=== PATIENT | female | born 1935 | race Caucasian/White ===

== ENCOUNTER 2017-04-10 10:30 | Emergency (ER) | payer MEDICAID, MEDICARE ==
[~2017-04-10] VITALS: Ht 157.5 cm; Wt 55.9 kg
[~2017-04-10 10:30] MED LIST: BLOOD PRESSURE MED
[2017-04-10 10:41] VITALS: BP 171/101
[2017-04-10] MEDS ORDERED: L.E.T SOLUTION TP ONE (11:30)
[2017-04-10] MEDS ORDERED: DIPH,PERTUSS(ACELL),TET VAC/PF 0.5 ML IM-VACC ONE ×2 (11:44→12:00)
== END 2017-04-10 11:59 | disposition home or self-care (01) ==
LOC: ED 11:50
DX: S61.411A Laceration without foreign body of right hand, initial encounter (principal); I10 Essential (primary) hypertension; I21.3 ST elevation (STEMI) myocardial infarction of unspecified site; W23.0XXA Caught, crushed, jammed, or pinched between moving objects, initial encounter; Y93.89 Activity, other specified; Y92.89 Other specified places as the place of occurrence of the external cause; Y99.8 Other external cause status; Z23 Encounter for immunization
CPT/HCPCS: 90471; 90715

== ENCOUNTER 2017-04-18 15:01 | Emergency (ER) | payer MEDICAID, MEDICARE ==
[~2017-04-18] VITALS: Ht 157.5 cm; Wt 55.4 kg
[2017-04-18 16:13] LABS: BLOOD UREA NITROGEN 26 mg/dL (7-18)
[2017-04-18] MEDS ORDERED: ENALAPRIL 5MG TABLET PO ONE (16:30)
[2017-04-18] MEDS ORDERED: BACITRACIN ZINC OINT 500U/GM, 0.9 GM ONE ×2 (17:09)
[2017-04-18 17:32] VITALS: BP 206/114
== END 2017-04-18 17:35 | disposition home or self-care (01) ==
LOC: ED 17:29
DX: S61.411D Laceration without foreign body of right hand, subsequent encounter (principal); N28.9 Disorder of kidney and ureter, unspecified; I10 Essential (primary) hypertension; Z90.710 Acquired absence of both cervix and uterus; L03.113 Cellulitis of right upper limb; W23.0XXD Caught, crushed, jammed, or pinched between moving objects, subsequent encounter; Y92.89 Other specified places as the place of occurrence of the external cause; Y99.9 Unspecified external cause status
CPT/HCPCS: 36415; 80048; 82040; 85025; 93005; 99285

== ENCOUNTER 2017-09-17 19:48 | Emergency (ER) | payer MEDICARE ==
[~2017-09-17] VITALS: Ht 167.6 cm; Wt 75.0 kg
[2017-09-17 21:52] VITALS: BP 148/98
== END 2017-09-17 21:54 | disposition home or self-care (01) ==
LOC: ED 20:28 → EDBD 20:28 → ED 21:54
DX: R41.82 Altered mental status, unspecified (principal); R41.0 Disorientation, unspecified; I10 Essential (primary) hypertension; K22.6 Gastro-esophageal laceration-hemorrhage syndrome; I25.2 Old myocardial infarction
CPT/HCPCS: 99284

== ENCOUNTER 2018-01-19 15:30 | Inpatient (IN) | payer MEDICARE, MEDICAID ==
[~2018-01-19] VITALS: Ht 157.5 cm; Wt 42.7 kg
[2018-01-19] MEDS ORDERED: NITROGLYCERIN OINT 2%, 1GM TP ONE ×2 (16:00→16:14)
[2018-01-19] MEDS ORDERED: SODIUM CHLORIDE FLUSH 10ML SYR IVF ONE (16:00)
[2018-01-19] MEDS: LABETALOL 5MG/ML, 20ML IVPush ONE ×2 (16:00→16:27)
[2018-01-19 16:11] LABS: BASOPHILS # (AUTO) 0.05 x10^3/uL (0-0.1); BASOPHILS % (AUTO) 1 % (0-1); EOSINOPHILS # (AUTO) 0.02 x10^3/uL (0-0.4); EOSINOPHILS % (AUTO) 0 % (1-7); LYMPHOCYTES # (AUTO) 1.55 x10^3/uL (1-3.4); LYMPHOCYTES % (AUTO) 26 % (22-44); MD NO; MEAN CORPUSCULAR HEMOGLOBIN 31.9 pg (27.0-34.8); MEAN CORPUSCULAR HGB CONC 34.3 g/dL (32.4-35.8); MEAN PLATELET VOLUME 7.3 fL (7.4-10.4); MONOCYTES # (AUTO) 0.56 x10^3/uL (0.2-0.8); MONOCYTES % (AUTO) 9 % (2-9); NEUTROPHILS # (AUTO) 3.88 x10^3/uL (1.8-6.8); NEUTROPHILS % (AUTO) 64 % (42-75); PLATELET COUNT 328 x10^3/uL (130-400); RED BLOOD COUNT 4.97 x10^6/uL (3.82-5.3); RED CELL DISTRIBUTION WIDTH 13.9 % (9.6-15.2)
[2018-01-19] MEDS ORDERED: LABETALOL 5MG/ML, 20ML ONE (16:15)
[2018-01-19 16:20] LABS: ALANINE AMINOTRANSFERASE 20 U/L (12-78); ALBUMIN 4.1 g/dL (3.4-5.0); ANION GAP 11 mmol/L (5-15); CALCIUM 9.2 mg/dL (8.5-10.1); CHLORIDE 105 mmol/L (98-107); CULTURE INDICATED? YES; MICROSCOPIC INDICATED
[2018-01-19 16:22] LABS: ALKALINE PHOSPHATASE 51 U/L (45-117); BILIRUBIN,TOTAL 0.6 mg/dL (0.2-1.0); SALICYLATE LEVEL < 1.7 mg/dL (2.8-20.0)
[2018-01-19 16:23] LABS: ACETAMINOPHEN < 2 mcg/mL (10-30)
[2018-01-19 16:27] LABS: AMPHETAMINE SCREEN, URINE Negative (Negative); BARBITURATE SCREEN, URINE Negative (Negative); BENZODIAZEPINE SCREEN, URINE Negative (Negative); CANNABINOID SCREEN, URINE Negative (Negative); COCAINE SCREEN, URINE Negative (Negative); METHADONE SCREEN, URINE Negative (Negative); OPIATE SCREEN, URINE Negative (Negative)
[2018-01-19] MEDS ORDERED: CEFTRIAXONE PMX 1GM/50ML 50 ML IV ONE (16:30)
[2018-01-19] MEDS ORDERED: CEFTRIAXONE PMX 1GM/50ML 50 ML ONE (16:42)
[2018-01-19] MEDS ORDERED: ZIPRASIDONE 20 MG INJ IM ONE ×2 (18:30)
[2018-01-19] MEDS ORDERED: ENOXAPARIN 40 MG/0.4 ML SQ SCH (20:30)
[2018-01-19] MEDS ORDERED: ACETAMINOPHEN 325 MG TABLET PO PRN (20:30)
[2018-01-19 21:53] VITALS: BP 148/84
[2018-01-19] MEDS: SODIUM CHLORIDE 0.9% 1,000 ML IV SCH (22:46)
[2018-01-20 01:13] VITALS: BP 138/78
[2018-01-20 06:47] VITALS: BP 167/80
[2018-01-20] MEDS: SODIUM CHLORIDE 0.9% 1,000 ML IV SCH ×2 (10:44→22:28)
[2018-01-20 13:10] VITALS: BP 203/97
[2018-01-20] MEDS: hydrALAzine 20 MG/ML, 1ML IVPush PRN (13:31)
[2018-01-20 19:20] VITALS: BP 165/86
[2018-01-20] MEDS: IBUPROFEN 200 MG TABLET PO PRN (19:31)
[2018-01-20] MEDS: CEFTRIAXONE PMX 1GM/50ML 50 ML IV SCH (19:31)
[2018-01-20] MEDS: ENOXAPARIN 30 MG/0.3 ML SQ SCH (19:31)
[2018-01-21 02:04] VITALS: BP 161/88
[2018-01-21 07:15] VITALS: BP 183/93
[2018-01-21] MEDS: hydrALAzine 20 MG/ML, 1ML IVPush PRN ×3 (07:35→17:23)
[2018-01-21 10:09] LABS: ANION GAP 9 mmol/L (5-15); CALCIUM 8.5 mg/dL (8.5-10.1); CHLORIDE 106 mmol/L (98-107); CREATININE 1.11 mg/dL (0.55-1.02)
[2018-01-21 12:45] VITALS: BP 172/90
[2018-01-21] MEDS: IBUPROFEN 200 MG TABLET PO PRN (12:50)
[2018-01-21 17:03] VITALS: BP 172/93
[2018-01-21 17:44] LABS: FREE T4 (FREE THYROXINE) 1.02 ng/dL (0.76-1.46); TROPONIN I < 0.015 ng/mL (0.000-0.045)
[2018-01-21 18:05] VITALS: BP 173/76
[2018-01-21 18:06] LABS: FOLATE LEVEL 12.1 ng/mL (3.1-17.5)
[2018-01-21] MEDS ORDERED: GADOBUTROL 7.5 MMOL/7.5 ML PFS ONE (19:30)
[2018-01-21 20:06] VITALS: BP 162/72
[2018-01-21] MEDS: ONDANSETRON 2MG/ML, 2ML IVPush PRN (20:33)
[2018-01-21] MEDS: CEFTRIAXONE PMX 1GM/50ML 50 ML IV SCH (22:06)
[2018-01-21] MEDS: ENOXAPARIN 30 MG/0.3 ML SQ SCH (22:06)
[2018-01-21] MEDS: ATORVASTATIN 20 MG TABLET PO SCH (22:07)
[2018-01-22] MEDS ORDERED: ASPIRIN 325 MG TABLET ONE (00:34)
[2018-01-22] MEDS: ASPIRIN 325 MG TABLET PO SCH (00:51)
[2018-01-22 01:02] VITALS: BP 158/83
[2018-01-22 05:22] LABS: BASOPHILS # (AUTO) 0.04 x10^3/uL (0-0.1); BASOPHILS % (AUTO) 1 % (0-1); EOSINOPHILS # (AUTO) 0.05 x10^3/uL (0-0.4); EOSINOPHILS % (AUTO) 1 % (1-7); LYMPHOCYTES # (AUTO) 1.93 x10^3/uL (1-3.4); LYMPHOCYTES % (AUTO) 27 % (22-44); MD NO; MEAN CORPUSCULAR HEMOGLOBIN 32.1 pg (27.0-34.8); MEAN CORPUSCULAR HGB CONC 34.1 g/dL (32.4-35.8); MEAN CORPUSCULAR VOLUME 94.1 fL (80-100); MEAN PLATELET VOLUME 7.7 fL (7.4-10.4); MONOCYTES # (AUTO) 0.92 x10^3/uL (0.2-0.8); MONOCYTES % (AUTO) 13 % (2-9); NEUTROPHILS # (AUTO) 4.24 x10^3/uL (1.8-6.8); NEUTROPHILS % (AUTO) 59 % (42-75); PLATELET COUNT 296 x10^3/uL (130-400); RED BLOOD COUNT 4.91 x10^6/uL (3.82-5.3); RED CELL DISTRIBUTION WIDTH 13.2 % (9.6-15.2)
[2018-01-22] MEDS: IBUPROFEN 200 MG TABLET PO PRN (05:25)
[2018-01-22 05:33] LABS: CHLORIDE 104 mmol/L (98-107)
[2018-01-22 05:34] LABS: ALBUMIN 3.7 g/dL (3.4-5.0); ANION GAP 12 mmol/L (5-15); CALCIUM 8.6 mg/dL (8.5-10.1)
[2018-01-22 05:39] LABS: ALANINE AMINOTRANSFERASE 20 U/L (12-78); ALKALINE PHOSPHATASE 46 U/L (45-117); BILIRUBIN,TOTAL 0.6 mg/dL (0.2-1.0); CHOL/HDL RATIO 3.3; CHOLESTEROL, TOTAL 293 mg/dL (140-239); CREATININE 1.15 mg/dL (0.55-1.02); HDL CHOL % 30 % (28-40); HDL CHOLESTEROL (DIRECT) 88 mg/dL (40-60); LDL CHOLESTEROL,CALCULATED 177 mg/dL (54-169); TOTAL PROTEIN 7.1 g/dL (6.4-8.2); TRIGLYCERIDES 140 mg/dL (50-200); TROPONIN I < 0.015 ng/mL (0.000-0.045); VLDL CHOLESTEROL 28 mg/dL (0-25)
[2018-01-22 07:40] VITALS: BP 161/104
[2018-01-22 16:02] VITALS: BP 170/107
[2018-01-22 19:47] VITALS: BP 189/92
[2018-01-22] MEDS: ENOXAPARIN 30 MG/0.3 ML SQ SCH (21:00)
[2018-01-22] MEDS: ATORVASTATIN 20 MG TABLET PO SCH (21:30)
[2018-01-22] MEDS: CEFDINIR 300 MG CAPSULE PO SCH (21:30)
[2018-01-22] MEDS: LISINOPRIL 10 MG TABLET PO SCH (21:30)
[2018-01-22 22:33] VITALS: BP 169/91
[2018-01-23 01:55] VITALS: BP 158/89
[2018-01-23 07:29] VITALS: BP 143/76
[2018-01-23] MEDS: ASPIRIN 325 MG TABLET PO SCH (08:00)
[2018-01-23] MEDS: LISINOPRIL 10 MG TABLET PO SCH ×2 (09:27→21:08)
[2018-01-23] MEDS: CEFDINIR 300 MG CAPSULE PO SCH ×2 (09:27→21:08)
[2018-01-23] MEDS: AMLODIPINE 5 MG TABLET PO SCH (09:27)
[2018-01-23 13:08] VITALS: BP 133/77
[2018-01-23 20:41] VITALS: BP 116/73
[2018-01-23] MEDS: ATORVASTATIN 20 MG TABLET PO SCH (21:08)
[2018-01-23] MEDS: ENOXAPARIN 30 MG/0.3 ML SQ SCH (21:08)
[2018-01-24 01:21] VITALS: BP 144/86
[2018-01-24] MEDS: ASPIRIN 325 MG TABLET PO SCH (04:57)
[2018-01-24 07:55] VITALS: BP 180/92
[2018-01-24] MEDS: LISINOPRIL 10 MG TABLET PO SCH ×2 (08:13→22:53)
[2018-01-24] MEDS: AMLODIPINE 5 MG TABLET PO SCH (08:13)
[2018-01-24] MEDS: CEFDINIR 300 MG CAPSULE PO SCH ×2 (08:13→22:53)
[2018-01-24 09:49] VITALS: BP 180/78
[2018-01-24] MEDS ORDERED: LORazepam 1MG TABLET PO ONE (12:00)
[2018-01-24] MEDS ORDERED: LORazepam 1MG TABLET PO PRN (12:00)
[2018-01-24 12:32] VITALS: BP 152/99
[2018-01-24 19:51] VITALS: BP 156/81
[2018-01-24] MEDS: ATORVASTATIN 20 MG TABLET PO SCH (22:53)
[2018-01-24] MEDS: ENOXAPARIN 40 MG/0.4 ML SQ SCH (23:06)
[2018-01-25 00:26] VITALS: BP 153/88
[2018-01-25] MEDS: LORazepam 1MG TABLET PO SCH ×3 (00:30→21:00)
[2018-01-25 05:32] LABS: CHLORIDE 106 mmol/L (98-107)
[2018-01-25] MEDS: ASPIRIN 325 MG TABLET PO SCH (05:38)
[2018-01-25 05:52] LABS: ANION GAP 7 mmol/L (5-15); CALCIUM 8.2 mg/dL (8.5-10.1); CREATININE 0.93 mg/dL (0.55-1.02)
[2018-01-25 07:11] VITALS: BP 136/85
[2018-01-25] MEDS: CEFDINIR 300 MG CAPSULE PO SCH ×2 (09:01→21:36)
[2018-01-25] MEDS: LISINOPRIL 10 MG TABLET PO SCH ×2 (09:01→21:36)
[2018-01-25] MEDS: AMLODIPINE 5 MG TABLET PO SCH (09:02)
[2018-01-25 12:36] VITALS: BP 163/79
[2018-01-25 20:30] VITALS: BP 129/77
[2018-01-25] MEDS: ATORVASTATIN 20 MG TABLET PO SCH (21:36)
[2018-01-25] MEDS: ENOXAPARIN 40 MG/0.4 ML SQ SCH (21:40)
[2018-01-26 02:00] VITALS: BP 130/72
[2018-01-26] MEDS: ASPIRIN 325 MG TABLET PO SCH (06:03)
[2018-01-26 08:28] VITALS: BP 131/64
[2018-01-26] MEDS: LORazepam 1MG TABLET PO SCH ×2 (08:57→21:48)
[2018-01-26] MEDS: AMLODIPINE 5 MG TABLET PO SCH (08:59)
[2018-01-26] MEDS: CEFDINIR 300 MG CAPSULE PO SCH ×2 (09:01→21:48)
[2018-01-26] MEDS: LISINOPRIL 10 MG TABLET PO SCH ×2 (09:02→21:49)
[2018-01-26 12:05] VITALS: BP 134/84
[2018-01-26] MEDS: ENOXAPARIN 40 MG/0.4 ML SQ SCH (21:00)
[2018-01-26 21:30] VITALS: BP 148/82
[2018-01-26] MEDS: ATORVASTATIN 20 MG TABLET PO SCH (21:49)
[2018-01-27 01:08] VITALS: BP 164/78
[2018-01-27] MEDS: ASPIRIN 325 MG TABLET PO SCH (06:00)
[2018-01-27 07:19] VITALS: BP 151/93
[2018-01-27] MEDS: CEFDINIR 300 MG CAPSULE PO SCH ×2 (10:27→23:31)
[2018-01-27] MEDS: AMLODIPINE 5 MG TABLET PO SCH (10:28)
[2018-01-27] MEDS: LISINOPRIL 10 MG TABLET PO SCH ×2 (10:28→23:31)
[2018-01-27] MEDS: LORazepam 1MG TABLET PO SCH ×2 (10:28→21:00)
[2018-01-27 19:13] VITALS: BP 148/79
[2018-01-27] MEDS: ENOXAPARIN 40 MG/0.4 ML SQ SCH (23:31)
[2018-01-27] MEDS: ATORVASTATIN 20 MG TABLET PO SCH (23:31)
[2018-01-27 23:36] VITALS: BP 122/80
[2018-01-28 02:39] VITALS: BP 116/74
[2018-01-28] MEDS: ASPIRIN 325 MG TABLET PO SCH (05:39)
[2018-01-28 06:12] LABS: MICROSCOPIC INDICATED
[2018-01-28 06:13] LABS: CULTURE INDICATED? YES
[2018-01-28 08:52] VITALS: BP 112/70
[2018-01-28] MEDS: CEFDINIR 300 MG CAPSULE PO SCH ×2 (09:34→21:48)
[2018-01-28] MEDS: LISINOPRIL 10 MG TABLET PO SCH ×2 (09:35→21:48)
[2018-01-28] MEDS: LORazepam 1MG TABLET PO SCH ×2 (09:36→21:48)
[2018-01-28] MEDS: POLYETHYLENE GLYCOL 17 GM PACKET PO PRN (09:37)
[2018-01-28] MEDS: AMLODIPINE 5 MG TABLET PO SCH (09:37)
[2018-01-28 12:11] VITALS: BP 110/68
[2018-01-28 20:00] VITALS: BP 105/63
[2018-01-28] MEDS: ATORVASTATIN 20 MG TABLET PO SCH (21:48)
[2018-01-28] MEDS: ENOXAPARIN 40 MG/0.4 ML SQ SCH (21:48)
[2018-01-29 02:00] VITALS: BP 111/69
[2018-01-29] MEDS: ASPIRIN 325 MG TABLET PO SCH (05:38)
[2018-01-29 06:55] VITALS: BP 95/53
[2018-01-29] MEDS: POLYETHYLENE GLYCOL 17 GM PACKET PO PRN (09:05)
[2018-01-29] MEDS: LORazepam 1MG TABLET PO SCH ×2 (09:05→22:02)
[2018-01-29] MEDS: CEFDINIR 300 MG CAPSULE PO SCH ×2 (09:05→22:03)
[2018-01-29] MEDS: LISINOPRIL 10 MG TABLET PO SCH ×2 (09:11→22:02)
[2018-01-29] MEDS: AMLODIPINE 5 MG TABLET PO SCH (09:11)
[2018-01-29 12:25] VITALS: BP 120/70
[2018-01-29 13:14] LABS: ANION GAP 7 mmol/L (5-15); CALCIUM 8.5 mg/dL (8.5-10.1); CHLORIDE 106 mmol/L (98-107)
[2018-01-29 19:07] VITALS: BP 142/82
[2018-01-29] MEDS: ATORVASTATIN 20 MG TABLET PO SCH (22:03)
[2018-01-29] MEDS: ENOXAPARIN 40 MG/0.4 ML SQ SCH (22:03)
[2018-01-30 02:38] VITALS: BP 105/72
[2018-01-30] MEDS: ASPIRIN 325 MG TABLET PO SCH (06:17)
[2018-01-30] MEDS: POLYETHYLENE GLYCOL 17 GM PACKET PO PRN (08:30)
[2018-01-30] MEDS: LORazepam 1MG TABLET PO SCH ×2 (08:30→21:00)
[2018-01-30] MEDS: AMLODIPINE 5 MG TABLET PO SCH (08:30)
[2018-01-30] MEDS: CEFDINIR 300 MG CAPSULE PO SCH ×2 (08:30→21:00)
[2018-01-30] MEDS: LISINOPRIL 10 MG TABLET PO SCH ×2 (08:30→21:00)
[2018-01-30 09:09] LABS: TROPONIN I < 0.015 ng/mL (0.000-0.045)
[2018-01-30 14:32] VITALS: BP 105/64
[2018-01-30] MEDS ORDERED: GADOBUTROL 7.5 MMOL/7.5 ML PFS ONE (19:28)
[2018-01-30 20:00] VITALS: BP 114/74
[2018-01-30] MEDS: ENOXAPARIN 40 MG/0.4 ML SQ SCH (21:00)
[2018-01-30] MEDS: ATORVASTATIN 20 MG TABLET PO SCH (21:00)
[2018-01-31 03:25] VITALS: BP 123/74
[2018-01-31] MEDS: ASPIRIN 325 MG TABLET PO SCH (05:49)
[2018-01-31 06:38] VITALS: BP 92/63
[2018-01-31 10:38] VITALS: BP 100/63
[2018-01-31 10:49] VITALS: BP 118/52
[2018-01-31] MEDS: LORazepam 1MG TABLET PO SCH ×2 (10:54→21:00)
[2018-01-31] MEDS: CEFDINIR 300 MG CAPSULE PO SCH ×2 (10:54→19:42)
[2018-01-31] MEDS: CLOPIDOGREL 75 MG TABLET PO SCH (12:37)
[2018-01-31 12:46] VITALS: BP 122/74
[2018-01-31] MEDS: ONDANSETRON 2MG/ML, 2ML IVPush PRN (13:00)
[2018-01-31] MEDS: LORazepam 2 MG/ML, 1ML IVPush PRN (18:03)
[2018-01-31 19:18] VITALS: BP 151/95
[2018-01-31] MEDS: LISINOPRIL 10 MG TABLET PO SCH (19:43)
[2018-01-31] MEDS: ATORVASTATIN 20 MG TABLET PO SCH (19:43)
[2018-01-31] MEDS: ENOXAPARIN 40 MG/0.4 ML SQ SCH (19:43)
[2018-01-31] MEDS ORDERED: LISINOPRIL 10 MG TABLET PO SCH (21:00)
[2018-02-01 03:07] VITALS: BP 115/76
[2018-02-01] MEDS: LORazepam 2 MG/ML, 1ML IVPush PRN ×3 (06:41→14:47)
[2018-02-01 06:54] VITALS: BP 146/89
[2018-02-01] MEDS ORDERED: AMLODIPINE 5 MG TABLET PO SCH ×2 (09:00)
[2018-02-01] MEDS: LORazepam 1MG TABLET PO SCH ×2 (09:00→21:00)
[2018-02-01] MEDS: CEFDINIR 300 MG CAPSULE PO SCH ×2 (09:00→21:00)
[2018-02-01] MEDS: CLOPIDOGREL 75 MG TABLET PO SCH (09:00)
[2018-02-01] MEDS: LISINOPRIL 10 MG TABLET PO SCH (09:00)
[2018-02-01 12:46] VITALS: BP 127/87
[2018-02-01] MEDS: DIVALPROEX 125 MG CAP.SPRINK PO SCH (16:30)
[2018-02-01] MEDS: METOPROLOL TARTRATE 25 MG TABLET PO SCH (18:00)
[2018-02-01 20:12] VITALS: BP 106/69
[2018-02-01] MEDS: ATORVASTATIN 20 MG TABLET PO SCH (21:00)
[2018-02-01] MEDS: ENOXAPARIN 40 MG/0.4 ML SQ SCH (21:00)
[2018-02-02 03:50] VITALS: BP 105/70
[2018-02-02] MEDS: METOPROLOL TARTRATE 25 MG TABLET PO SCH ×2 (06:13→16:24)
[2018-02-02 07:59] VITALS: BP 109/73
[2018-02-02] MEDS: LORazepam 1MG TABLET PO SCH ×2 (08:30→22:20)
[2018-02-02] MEDS: CEFDINIR 300 MG CAPSULE PO SCH ×2 (08:30→22:20)
[2018-02-02] MEDS: CLOPIDOGREL 75 MG TABLET PO SCH (08:30)
[2018-02-02 13:37] VITALS: BP 104/71
[2018-02-02 14:26] LABS: TROPONIN I < 0.015 ng/mL (0.000-0.045)
[2018-02-02] MEDS: DIVALPROEX 125 MG CAP.SPRINK PO SCH (17:06)
[2018-02-02 17:59] LABS: ANION GAP 9 mmol/L (5-15); CALCIUM 8.9 mg/dL (8.5-10.1); CHLORIDE 104 mmol/L (98-107); CREATININE 1.22 mg/dL (0.55-1.02)
[2018-02-02 19:28] VITALS: BP 122/76
[2018-02-02] MEDS: ATORVASTATIN 20 MG TABLET PO SCH (22:20)
[2018-02-02] MEDS: ENOXAPARIN 30 MG/0.3 ML SQ SCH (22:21)
[2018-02-03 01:32] VITALS: BP 109/74
[2018-02-03] MEDS: METOPROLOL TARTRATE 25 MG TABLET PO SCH ×2 (06:00→17:25)
[2018-02-03 08:34] VITALS: BP 128/84
[2018-02-03] MEDS: CLOPIDOGREL 75 MG TABLET PO SCH (10:26)
[2018-02-03] MEDS: CEFDINIR 300 MG CAPSULE PO SCH ×2 (10:26→20:13)
[2018-02-03] MEDS: LORazepam 1MG TABLET PO SCH ×2 (10:26→20:14)
[2018-02-03 13:27] VITALS: BP 136/84
[2018-02-03] MEDS: DIVALPROEX 125 MG CAP.SPRINK PO SCH (16:26)
[2018-02-03] MEDS: METOPROLOL TARTRATE 50 MG TABLET PO SCH (18:12)
[2018-02-03 18:28] VITALS: BP 143/85
[2018-02-03] MEDS: ATORVASTATIN 20 MG TABLET PO SCH (20:14)
[2018-02-03] MEDS: IBUPROFEN 200 MG TABLET PO PRN (20:16)
[2018-02-03] MEDS: ENOXAPARIN 30 MG/0.3 ML SQ SCH (20:44)
[2018-02-04 00:45] VITALS: BP 124/79
[2018-02-04] MEDS: METOPROLOL TARTRATE 50 MG TABLET PO SCH ×2 (06:00→18:26)
[2018-02-04 07:32] VITALS: BP 124/79
[2018-02-04] MEDS: LORazepam 1MG TABLET PO SCH ×3 (09:29→19:44)
[2018-02-04] MEDS: CLOPIDOGREL 75 MG TABLET PO SCH (09:29)
[2018-02-04] MEDS: CEFDINIR 300 MG CAPSULE PO SCH ×2 (09:29→19:43)
[2018-02-04 13:29] VITALS: BP 131/77
[2018-02-04] MEDS: DIVALPROEX 125 MG CAP.SPRINK PO SCH (16:34)
[2018-02-04 18:24] VITALS: BP 112/70
[2018-02-04 19:09] VITALS: BP 114/76
[2018-02-04] MEDS: ATORVASTATIN 20 MG TABLET PO SCH (19:43)
[2018-02-04] MEDS: ENOXAPARIN 30 MG/0.3 ML SQ SCH ×2 (19:45→20:07)
[2018-02-05 01:06] VITALS: BP 100/62
[2018-02-05 05:33] VITALS: BP 108/65
[2018-02-05] MEDS: METOPROLOL TARTRATE 50 MG TABLET PO SCH ×2 (05:34→18:00)
[2018-02-05 05:48] LABS: ANION GAP 7 mmol/L (5-15); CALCIUM 8.9 mg/dL (8.5-10.1); CHLORIDE 106 mmol/L (98-107); CREATININE 1.15 mg/dL (0.55-1.02)
[2018-02-05 06:30] VITALS: BP 97/63
[2018-02-05] MEDS: CLOPIDOGREL 75 MG TABLET PO SCH ×2 (09:00→09:11)
[2018-02-05] MEDS: LORazepam 1MG TABLET PO SCH ×2 (09:11→20:22)
[2018-02-05 12:05] VITALS: BP 123/74
[2018-02-05] MEDS: DIVALPROEX 125 MG CAP.SPRINK PO SCH (16:30)
[2018-02-05] MEDS: LORazepam 2 MG/ML, 1ML IM PRN (18:12)
[2018-02-05] MEDS ORDERED: ZIPRASIDONE 20 MG INJ IM ONE ×2 (18:29→18:30)
[2018-02-05 19:02] VITALS: BP 129/78
[2018-02-05] MEDS: ATORVASTATIN 20 MG TABLET PO SCH (20:22)
[2018-02-05] MEDS: ENOXAPARIN 30 MG/0.3 ML SQ SCH (20:23)
[2018-02-06 01:39] VITALS: BP 114/72
[2018-02-06] MEDS: METOPROLOL TARTRATE 50 MG TABLET PO SCH ×2 (04:54→18:00)
[2018-02-06] MEDS ORDERED: ZIPRASIDONE 20 MG INJ IM PRN (07:30)
[2018-02-06 07:47] VITALS: BP 103/68
[2018-02-06] MEDS: CLOPIDOGREL 75 MG TABLET PO SCH (09:00)
[2018-02-06] MEDS: LORazepam 1MG TABLET PO SCH ×2 (09:46→20:02)
[2018-02-06 12:02] VITALS: BP 99/62
[2018-02-06] MEDS: DIVALPROEX 125 MG CAP.SPRINK PO SCH (18:08)
[2018-02-06 18:54] VITALS: BP 98/59
[2018-02-06] MEDS: ATORVASTATIN 20 MG TABLET PO SCH (20:01)
[2018-02-06] MEDS: ENOXAPARIN 30 MG/0.3 ML SQ SCH (20:02)
[2018-02-07 01:15] VITALS: BP 100/64
[2018-02-07] MEDS: METOPROLOL TARTRATE 50 MG TABLET PO SCH ×2 (05:00→16:26)
[2018-02-07 07:00] VITALS: BP 114/77
[2018-02-07] MEDS: CLOPIDOGREL 75 MG TABLET PO SCH (09:18)
[2018-02-07] MEDS: LORazepam 1MG TABLET PO SCH ×3 (09:18→22:45)
[2018-02-07] MEDS: IBUPROFEN 200 MG TABLET PO PRN (09:18)
[2018-02-07] MEDS: ZIPRASIDONE 20 MG INJ IM PRN ×2 (12:17→20:38)
[2018-02-07 12:50] VITALS: BP 102/69
[2018-02-07 16:23] VITALS: BP 93/68
[2018-02-07] MEDS: DIVALPROEX 125 MG CAP.SPRINK PO SCH (16:29)
[2018-02-07 18:40] VITALS: BP 102/66
[2018-02-07] MEDS: ATORVASTATIN 20 MG TABLET PO SCH (21:33)
[2018-02-07] MEDS: ENOXAPARIN 30 MG/0.3 ML SQ SCH (21:33)
[2018-02-07] MEDS: TRAZODONE 50MG TABLET PO PRN (22:45)
[2018-02-08 02:10] VITALS: BP 113/72
[2018-02-08] MEDS: LORazepam 2 MG/ML, 1ML IM PRN (03:43)
[2018-02-08 05:20] LABS: CHLORIDE 106 mmol/L (98-107)
[2018-02-08 05:24] LABS: ANION GAP 9 mmol/L (5-15); CALCIUM 8.8 mg/dL (8.5-10.1); CREATININE 1.14 mg/dL (0.55-1.02)
[2018-02-08] MEDS: METOPROLOL TARTRATE 50 MG TABLET PO SCH ×2 (06:30→18:19)
[2018-02-08 07:14] VITALS: BP 159/93
[2018-02-08] MEDS: LORazepam 1MG TABLET PO SCH ×2 (08:57→19:41)
[2018-02-08] MEDS: CLOPIDOGREL 75 MG TABLET PO SCH ×2 (08:57→16:04)
[2018-02-08] MEDS: ZIPRASIDONE 20 MG INJ IM PRN ×2 (12:08→21:26)
[2018-02-08 14:05] VITALS: BP 136/75
[2018-02-08] MEDS: DIVALPROEX 125 MG CAP.SPRINK PO SCH (15:59)
[2018-02-08 19:05] VITALS: BP 130/83
[2018-02-08] MEDS: ATORVASTATIN 20 MG TABLET PO SCH (19:41)
[2018-02-08] MEDS: ENOXAPARIN 30 MG/0.3 ML SQ SCH (21:00)
[2018-02-09 02:14] VITALS: BP 147/91
[2018-02-09 05:29] VITALS: BP 134/80
[2018-02-09] MEDS: METOPROLOL TARTRATE 50 MG TABLET PO SCH ×2 (05:30→18:31)
[2018-02-09 08:30] VITALS: BP 129/78
[2018-02-09] MEDS: CLOPIDOGREL 75 MG TABLET PO SCH (10:05)
[2018-02-09] MEDS: LORazepam 1MG TABLET PO SCH ×2 (10:05→21:00)
[2018-02-09 14:47] VITALS: BP 114/76
[2018-02-09] MEDS: DIVALPROEX 125 MG CAP.SPRINK PO SCH (16:57)
[2018-02-09] MEDS: ZIPRASIDONE 20 MG INJ IM PRN (19:02)
[2018-02-09 19:40] VITALS: BP 109/72
[2018-02-09] MEDS: ATORVASTATIN 20 MG TABLET PO SCH (21:00)
[2018-02-09] MEDS: ENOXAPARIN 30 MG/0.3 ML SQ SCH (22:35)
[2018-02-10 04:49] VITALS: BP 88/52
[2018-02-10 05:43] VITALS: BP 103/65
[2018-02-10] MEDS: METOPROLOL TARTRATE 50 MG TABLET PO SCH ×2 (05:44→17:13)
[2018-02-10 08:20] VITALS: BP 123/75
[2018-02-10] MEDS: CLOPIDOGREL 75 MG TABLET PO SCH (10:37)
[2018-02-10] MEDS: POLYETHYLENE GLYCOL 17 GM PACKET PO PRN (10:38)
[2018-02-10] MEDS: LORazepam 1MG TABLET PO SCH ×2 (10:38→21:00)
[2018-02-10 14:27] VITALS: BP 154/96
[2018-02-10] MEDS: DIVALPROEX 125 MG CAP.SPRINK PO SCH (16:30)
[2018-02-10 17:19] VITALS: BP 164/86
[2018-02-10 19:31] VITALS: BP 169/102
[2018-02-10] MEDS: ENOXAPARIN 30 MG/0.3 ML SQ SCH (21:00)
[2018-02-10] MEDS: ATORVASTATIN 20 MG TABLET PO SCH (21:00)
[2018-02-11] VITALS (9 sets, daily range): BP systolic 90–144; BP diastolic 60–87
[2018-02-11 00:01] LABS: MICROSCOPIC INDICATED
[2018-02-11] MEDS: ZIPRASIDONE 20 MG INJ IM PRN ×2 (01:23→17:25)
[2018-02-11] MEDS: CEFTRIAXONE 1,000 MG in SODIUM CHLORIDE 0.9% 50 ML IV SCH (01:52)
[2018-02-11 01:55] LABS: ANION GAP 8 mmol/L (5-15); CALCIUM 9.2 mg/dL (8.5-10.1); CHLORIDE 106 mmol/L (98-107); CREATININE 1.04 mg/dL (0.55-1.02)
[2018-02-11] MEDS: METOPROLOL TARTRATE 50 MG TABLET PO SCH ×2 (08:50→21:00)
[2018-02-11] MEDS: LORazepam 1MG TABLET PO SCH ×2 (08:50→21:00)
[2018-02-11] MEDS: CLOPIDOGREL 75 MG TABLET PO SCH (08:50)
[2018-02-11] MEDS: DIVALPROEX 125 MG CAP.SPRINK PO SCH (16:30)
[2018-02-11] MEDS: ATORVASTATIN 20 MG TABLET PO SCH (21:00)
[2018-02-11] MEDS: ENOXAPARIN 40 MG/0.4 ML SQ SCH (22:58)
[2018-02-12] MEDS: CEFTRIAXONE 1,000 MG in SODIUM CHLORIDE 0.9% 50 ML IV SCH (01:25)
[2018-02-12 01:42] VITALS: BP 97/64
[2018-02-12 05:08] LABS: ANION GAP 8 mmol/L (5-15); CALCIUM 8.5 mg/dL (8.5-10.1); CHLORIDE 109 mmol/L (98-107)
[2018-02-12 05:11] LABS: CREATININE 1.07 mg/dL (0.55-1.02)
[2018-02-12] MEDS: METOPROLOL TARTRATE 50 MG TABLET PO SCH ×2 (06:00→16:27)
[2018-02-12 08:00] VITALS: BP 109/67
[2018-02-12] MEDS: CLOPIDOGREL 75 MG TABLET PO SCH (09:11)
[2018-02-12] MEDS: LORazepam 1MG TABLET PO SCH ×2 (09:11→21:00)
[2018-02-12 13:37] VITALS: BP 136/88
[2018-02-12] MEDS: ZIPRASIDONE 20 MG INJ IM PRN (15:34)
[2018-02-12] MEDS: DIVALPROEX 125 MG CAP.SPRINK PO SCH (16:27)
[2018-02-12 18:58] VITALS: BP 132/87
[2018-02-12] MEDS: ATORVASTATIN 20 MG TABLET PO SCH (21:00)
[2018-02-12] MEDS: ENOXAPARIN 40 MG/0.4 ML SQ SCH (21:49)
[2018-02-13 00:36] VITALS: BP 107/70
[2018-02-13] MEDS: CEFTRIAXONE PMX 1GM/50ML 50 ML IV SCH (01:32)
[2018-02-13] MEDS: METOPROLOL TARTRATE 50 MG TABLET PO SCH ×2 (06:00→19:11)
[2018-02-13 07:06] VITALS: BP 151/95
[2018-02-13] MEDS: ZIPRASIDONE 20 MG INJ IM PRN (08:00)
[2018-02-13] MEDS: LORazepam 1MG TABLET PO SCH ×2 (10:31→21:26)
[2018-02-13] MEDS: CLOPIDOGREL 75 MG TABLET PO SCH (10:32)
[2018-02-13 12:14] VITALS: BP 183/111
[2018-02-13] MEDS ORDERED: LABETALOL 5MG/ML, 20ML IVPush PRN (14:00)
[2018-02-13] MEDS ORDERED: hydrALAzine 20 MG/ML, 1ML IV PRN (14:00)
[2018-02-13] MEDS ORDERED: ENALAPRILAT 1.25 MG/ML, 2ML IV PRN (14:00)
[2018-02-13 14:10] VITALS: BP 172/116
[2018-02-13] MEDS: DIVALPROEX 125 MG CAP.SPRINK PO SCH (15:51)
[2018-02-13] MEDS: LORazepam 2 MG/ML, 1ML IM PRN (15:51)
[2018-02-13 19:59] VITALS: BP 164/77
[2018-02-13] MEDS: ATORVASTATIN 20 MG TABLET PO SCH (21:26)
[2018-02-13] MEDS: ENOXAPARIN 40 MG/0.4 ML SQ SCH (21:26)
[2018-02-13] MEDS: TRAZODONE 50MG TABLET PO PRN (21:26)
[2018-02-14 00:33] VITALS: BP 148/87
[2018-02-14] MEDS: ZIPRASIDONE 20 MG INJ IM PRN ×2 (01:28→16:04)
[2018-02-14] MEDS: CEFTRIAXONE PMX 1GM/50ML 50 ML IV SCH (01:35)
[2018-02-14 05:15] VITALS: BP 117/69
[2018-02-14] MEDS: METOPROLOL TARTRATE 50 MG TABLET PO SCH ×2 (05:18→17:28)
[2018-02-14 06:50] VITALS: BP 106/68
[2018-02-14] MEDS: LORazepam 1MG TABLET PO SCH ×2 (10:24→22:26)
[2018-02-14] MEDS: CLOPIDOGREL 75 MG TABLET PO SCH (10:24)
[2018-02-14 13:20] VITALS: BP 136/84
[2018-02-14] MEDS: DIVALPROEX 125 MG CAP.SPRINK PO SCH (16:30)
[2018-02-14 16:41] LABS: CULTURE INDICATED? YES; MICROSCOPIC INDICATED
[2018-02-14] MEDS ORDERED: CEFTRIAXONE PMX 1GM/50ML 50 ML IV SCH (17:00)
[2018-02-14 19:19] VITALS: BP 110/68
[2018-02-14] MEDS: TRAZODONE 50MG TABLET PO PRN (22:27)
[2018-02-14] MEDS: ENOXAPARIN 40 MG/0.4 ML SQ SCH ×2 (22:27→22:31)
[2018-02-14] MEDS: ATORVASTATIN 20 MG TABLET PO SCH (22:27)
[2018-02-15] MEDS: CEFTRIAXONE PMX 1GM/50ML 50 ML IV SCH (01:41)
[2018-02-15 04:00] VITALS: BP 113/64
[2018-02-15] MEDS: METOPROLOL TARTRATE 50 MG TABLET PO SCH ×2 (05:50→17:29)
[2018-02-15 07:09] VITALS: BP 111/67
[2018-02-15] MEDS: CLOPIDOGREL 75 MG TABLET PO SCH (09:00)
[2018-02-15] MEDS: LORazepam 1MG TABLET PO SCH ×3 (11:50→22:25)
[2018-02-15 14:19] VITALS: BP 131/74
[2018-02-15] MEDS: DIVALPROEX 125 MG CAP.SPRINK PO SCH (16:30)
[2018-02-15 20:05] VITALS: BP 140/57
[2018-02-15] MEDS: TRAZODONE 50MG TABLET PO PRN (21:30)
[2018-02-15] MEDS: ATORVASTATIN 20 MG TABLET PO SCH ×2 (21:31→22:25)
[2018-02-15] MEDS: ENOXAPARIN 40 MG/0.4 ML SQ SCH ×2 (21:31→22:25)
[2018-02-16 00:30] VITALS: BP 149/89
[2018-02-16] MEDS: CEFTRIAXONE PMX 1GM/50ML 50 ML IV SCH (01:21)
[2018-02-16] MEDS: METOPROLOL TARTRATE 50 MG TABLET PO SCH ×2 (05:21→17:48)
[2018-02-16 06:50] VITALS: BP 123/72
[2018-02-16] MEDS: LORazepam 1MG TABLET PO SCH ×2 (09:04→20:59)
[2018-02-16] MEDS: CLOPIDOGREL 75 MG TABLET PO SCH (09:05)
[2018-02-16 12:25] VITALS: BP 180/92
[2018-02-16] MEDS: DIVALPROEX 125 MG CAP.SPRINK PO SCH (16:30)
[2018-02-16 17:50] VITALS: BP 117/71
[2018-02-16 18:49] VITALS: BP 133/77
[2018-02-16] MEDS: IBUPROFEN 200 MG TABLET PO PRN (19:22)
[2018-02-16] MEDS: CIPROFLOXACIN 500 MG TABLET PO SCH (20:59)
[2018-02-16] MEDS: ENOXAPARIN 40 MG/0.4 ML SQ SCH (20:59)
[2018-02-16] MEDS: ATORVASTATIN 20 MG TABLET PO SCH (20:59)
[2018-02-16] MEDS: ZIPRASIDONE 20 MG INJ IM PRN (22:55)
[2018-02-17 04:10] VITALS: BP 123/74
[2018-02-17 06:50] VITALS: BP 91/53
[2018-02-17] MEDS: METOPROLOL TARTRATE 50 MG TABLET PO SCH ×2 (08:00→18:00)
[2018-02-17] MEDS: LORazepam 1MG TABLET PO SCH (09:00)
[2018-02-17] MEDS: CLOPIDOGREL 75 MG TABLET PO SCH (09:09)
[2018-02-17] MEDS: CIPROFLOXACIN 500 MG TABLET PO SCH (09:09)
[2018-02-17 10:00] VITALS: BP 100/67
[2018-02-17 12:20] VITALS: BP 102/56
[2018-02-17] MEDS: DIVALPROEX 125 MG CAP.SPRINK PO SCH (12:50)
[2018-02-17] MEDS: ZIPRASIDONE 20 MG INJ IM PRN ×2 (15:05→19:30)
[2018-02-17] MEDS ORDERED: LINEZOLID 600 MG TABLET PO ONE (15:30)
[2018-02-17] MEDS: LORazepam 2 MG/ML, 1ML IM PRN (16:17)
[2018-02-17] MEDS: ATORVASTATIN 20 MG TABLET PO SCH ×2 (19:29→19:34)
[2018-02-17 20:48] VITALS: BP 127/76
[2018-02-17] MEDS ORDERED: ENOXAPARIN 30 MG/0.3 ML SQ SCH (21:00)
[2018-02-18 00:17] VITALS: BP 120/73
[2018-02-18] MEDS: TRAZODONE 50MG TABLET PO PRN (00:54)
[2018-02-18] MEDS: ZIPRASIDONE 20 MG INJ IM PRN (03:40)
[2018-02-18] MEDS: METOPROLOL TARTRATE 50 MG TABLET PO SCH ×2 (05:40→18:27)
[2018-02-18 07:24] VITALS: BP 142/72
[2018-02-18] MEDS: CLOPIDOGREL 75 MG TABLET PO SCH (11:26)
[2018-02-18] MEDS: LINEZOLID 600 MG TABLET PO SCH ×2 (11:27→20:46)
[2018-02-18] MEDS: DIVALPROEX 125 MG CAP.SPRINK PO SCH (13:57)
[2018-02-18 14:00] VITALS: BP 161/93
[2018-02-18 16:11] VITALS: BP 161/93
[2018-02-18] MEDS: ENOXAPARIN 40 MG/0.4 ML SQ SCH (20:00)
[2018-02-18] MEDS: ATORVASTATIN 20 MG TABLET PO SCH (20:46)
[2018-02-18] MEDS: QUETIAPINE 25MG TABLET PO SCH (20:46)
[2018-02-18 20:50] VITALS: BP 122/78
[2018-02-19] MEDS: METOPROLOL TARTRATE 50 MG TABLET PO SCH ×2 (06:04→18:00)
[2018-02-19 07:49] VITALS: BP 113/70
[2018-02-19] MEDS: QUETIAPINE 25MG TABLET PO SCH ×3 (08:14→14:55)
[2018-02-19] MEDS: LINEZOLID 600 MG TABLET PO SCH ×3 (08:14→14:56)
[2018-02-19] MEDS: CLOPIDOGREL 75 MG TABLET PO SCH ×2 (08:15→09:00)
[2018-02-19] MEDS: ZIPRASIDONE 20 MG INJ IM PRN ×3 (08:42→22:16)
[2018-02-19] MEDS: DIVALPROEX 125 MG CAP.SPRINK PO SCH (12:00)
[2018-02-19 14:26] VITALS: BP 90/59
[2018-02-19 14:30] VITALS: BP 103/63
[2018-02-19] MEDS: ATORVASTATIN 20 MG TABLET PO SCH (19:44)
[2018-02-19] MEDS: ENOXAPARIN 40 MG/0.4 ML SQ SCH (19:45)
[2018-02-19 19:55] VITALS: BP 102/62
[2018-02-20] MEDS: LINEZOLID 600 MG TABLET PO SCH ×3 (01:29→21:04)
[2018-02-20] MEDS: QUETIAPINE 25MG TABLET PO SCH ×3 (01:29→21:04)
[2018-02-20 02:01] VITALS: BP 102/65
[2018-02-20] MEDS: METOPROLOL TARTRATE 50 MG TABLET PO SCH ×2 (05:46→18:00)
[2018-02-20 06:21] LABS: CREATININE 1.33 mg/dL (0.55-1.02)
[2018-02-20] MEDS: ZIPRASIDONE 20 MG INJ IM PRN ×2 (07:29→13:39)
[2018-02-20] MEDS: CLOPIDOGREL 75 MG TABLET PO SCH (08:54)
[2018-02-20] MEDS: DIVALPROEX 125 MG CAP.SPRINK PO SCH (11:16)
[2018-02-20 14:30] VITALS: BP 118/82
[2018-02-20] MEDS ORDERED: ONDANSETRON 4 MG TABLET PO PRN (14:30)
[2018-02-20] MEDS ORDERED: LORazepam 2 MG/ML, 1ML IM ONE (14:30)
[2018-02-20] MEDS: ACETAMINOPHEN 500 MG TABLET PO SCH ×2 (19:00→21:05)
[2018-02-20 19:01] VITALS: BP 125/79
[2018-02-20] MEDS: ENOXAPARIN 40 MG/0.4 ML SQ SCH (20:00)
[2018-02-20] MEDS: ATORVASTATIN 20 MG TABLET PO SCH ×2 (21:00→21:04)
[2018-02-20] MEDS: TRAZODONE 50MG TABLET PO PRN (21:04)
[2018-02-21 01:57] VITALS: BP 154/92
[2018-02-21] MEDS: ACETAMINOPHEN 500 MG TABLET PO SCH ×3 (03:00→19:00)
[2018-02-21] MEDS: METOPROLOL TARTRATE 50 MG TABLET PO SCH ×2 (05:56→17:54)
[2018-02-21 08:30] VITALS: BP 126/84
[2018-02-21 08:55] LABS: BASOPHILS # (AUTO) 0.03 x10^3/uL (0-0.1); BASOPHILS % (AUTO) 1 % (0-1); EOSINOPHILS # (AUTO) 0.08 x10^3/uL (0-0.4); EOSINOPHILS % (AUTO) 2 % (1-7); LYMPHOCYTES # (AUTO) 1.46 x10^3/uL (1-3.4); LYMPHOCYTES % (AUTO) 34 % (22-44); MD NO; MEAN CORPUSCULAR HEMOGLOBIN 31.4 pg (27.0-34.8); MEAN CORPUSCULAR HGB CONC 33.5 g/dL (32.4-35.8); MEAN CORPUSCULAR VOLUME 93.7 fL (80-100); MEAN PLATELET VOLUME 8.3 fL (7.4-10.4); MONOCYTES # (AUTO) 0.56 x10^3/uL (0.2-0.8); MONOCYTES % (AUTO) 13 % (2-9); NEUTROPHILS # (AUTO) 2.13 x10^3/uL (1.8-6.8); NEUTROPHILS % (AUTO) 50 % (42-75); PLATELET COUNT 281 x10^3/uL (130-400); RED BLOOD COUNT 4.15 x10^6/uL (3.82-5.3); RED CELL DISTRIBUTION WIDTH 12.9 % (9.6-15.2)
[2018-02-21 09:00] LABS: ANION GAP 10 mmol/L (5-15); CALCIUM 8.7 mg/dL (8.5-10.1); CHLORIDE 109 mmol/L (98-107); CREATININE 1.16 mg/dL (0.55-1.02)
[2018-02-21] MEDS: QUETIAPINE 25MG TABLET PO SCH ×2 (09:36→20:01)
[2018-02-21] MEDS: CLOPIDOGREL 75 MG TABLET PO SCH (10:19)
[2018-02-21] MEDS: LORazepam 0.5MG TABLET PO SCH (10:19)
[2018-02-21] MEDS: LINEZOLID 600 MG TABLET PO SCH ×2 (10:19→20:01)
[2018-02-21] MEDS: DIVALPROEX 125 MG CAP.SPRINK PO SCH (12:00)
[2018-02-21 14:30] VITALS: BP 129/78
[2018-02-21] MEDS: LORazepam 2 MG/ML, 1ML IM PRN (15:34)
[2018-02-21 18:37] VITALS: BP 123/76
[2018-02-21] MEDS: ENOXAPARIN 30 MG/0.3 ML SQ SCH (20:00)
[2018-02-21] MEDS: ATORVASTATIN 20 MG TABLET PO SCH (20:01)
[2018-02-22] MEDS: ACETAMINOPHEN 500 MG TABLET PO SCH ×3 (03:00→19:00)
[2018-02-22] MEDS: METOPROLOL TARTRATE 50 MG TABLET PO SCH ×2 (06:00→13:52)
[2018-02-22 07:17] VITALS: BP 146/80
[2018-02-22] MEDS: LORazepam 2 MG/ML, 1ML IM PRN ×3 (08:34→18:08)
[2018-02-22] MEDS: LINEZOLID 600 MG TABLET PO SCH ×2 (09:00→21:00)
[2018-02-22] MEDS: LORazepam 0.5MG TABLET PO SCH (09:00)
[2018-02-22] MEDS: CLOPIDOGREL 75 MG TABLET PO SCH (09:00)
[2018-02-22 13:43] VITALS: BP 160/97
[2018-02-22] MEDS: QUETIAPINE 25MG TABLET PO SCH ×2 (13:55→21:00)
[2018-02-22] MEDS: DIVALPROEX 125 MG CAP.SPRINK PO SCH (14:01)
[2018-02-22 19:33] VITALS: BP 149/75
[2018-02-22] MEDS: ENOXAPARIN 30 MG/0.3 ML SQ SCH (20:00)
[2018-02-22] MEDS: ZIPRASIDONE 20 MG INJ IM PRN (20:38)
[2018-02-22] MEDS: ATORVASTATIN 20 MG TABLET PO SCH (21:00)
[2018-02-23] MEDS: ZIPRASIDONE 20 MG INJ IM PRN (01:13)
[2018-02-23 02:00] VITALS: BP 118/68
[2018-02-23 02:05] VITALS: BP 118/68
[2018-02-23] MEDS: ACETAMINOPHEN 500 MG TABLET PO SCH ×3 (03:00→19:00)
[2018-02-23] MEDS: METOPROLOL TARTRATE 50 MG TABLET PO SCH ×2 (06:00→18:00)
[2018-02-23 07:55] VITALS: BP 118/75
[2018-02-23] MEDS: QUETIAPINE 25MG TABLET PO SCH ×2 (09:00→20:52)
[2018-02-23] MEDS: LINEZOLID 600 MG TABLET PO SCH ×2 (09:00→20:53)
[2018-02-23] MEDS: LORazepam 0.5MG TABLET PO SCH (09:00)
[2018-02-23] MEDS: CLOPIDOGREL 75 MG TABLET PO SCH (09:00)
[2018-02-23] MEDS: DIVALPROEX 125 MG CAP.SPRINK PO SCH (10:55)
[2018-02-23 12:57] VITALS: BP 108/73
[2018-02-23 18:33] VITALS: BP 104/65
[2018-02-23] MEDS: ENOXAPARIN 30 MG/0.3 ML SQ SCH (20:00)
[2018-02-23] MEDS: ATORVASTATIN 20 MG TABLET PO SCH (20:52)
[2018-02-24] MEDS: ACETAMINOPHEN 500 MG TABLET PO SCH ×3 (02:37→19:00)
[2018-02-24] MEDS: METOPROLOL TARTRATE 50 MG TABLET PO SCH ×2 (05:30→18:00)
[2018-02-24] MEDS: ZIPRASIDONE 20 MG INJ IM PRN ×2 (07:27→20:22)
[2018-02-24] MEDS: LORazepam 0.5MG TABLET PO SCH (08:24)
[2018-02-24] MEDS: QUETIAPINE 25MG TABLET PO SCH ×2 (08:24→20:24)
[2018-02-24] MEDS: LINEZOLID 600 MG TABLET PO SCH ×2 (08:24→20:24)
[2018-02-24] MEDS: CLOPIDOGREL 75 MG TABLET PO SCH (08:24)
[2018-02-24] MEDS: DIVALPROEX 125 MG CAP.SPRINK PO SCH (12:00)
[2018-02-24] MEDS: LORazepam 2 MG/ML, 1ML IM PRN (17:46)
[2018-02-24 19:09] VITALS: BP 112/70
[2018-02-24] MEDS: ENOXAPARIN 30 MG/0.3 ML SQ SCH (20:00)
[2018-02-24] MEDS: ATORVASTATIN 20 MG TABLET PO SCH (20:24)
[2018-02-25 01:28] VITALS: BP 101/63
[2018-02-25] MEDS: ACETAMINOPHEN 500 MG TABLET PO SCH ×3 (01:43→19:00)
[2018-02-25] MEDS: METOPROLOL TARTRATE 50 MG TABLET PO SCH ×2 (05:47→18:00)
[2018-02-25 07:08] VITALS: BP 132/80
[2018-02-25] MEDS: CLOPIDOGREL 75 MG TABLET PO SCH (07:49)
[2018-02-25] MEDS: LORazepam 0.5MG TABLET PO SCH (07:49)
[2018-02-25] MEDS: QUETIAPINE 25MG TABLET PO SCH ×2 (07:49→20:13)
[2018-02-25] MEDS: DIVALPROEX 125 MG CAP.SPRINK PO SCH (12:00)
[2018-02-25 13:52] VITALS: BP 154/90
[2018-02-25 18:17] VITALS: BP 115/65
[2018-02-25] MEDS: ENOXAPARIN 30 MG/0.3 ML SQ SCH (20:00)
[2018-02-25] MEDS: IBUPROFEN 200 MG TABLET PO PRN (20:12)
[2018-02-25] MEDS: ATORVASTATIN 20 MG TABLET PO SCH (20:13)
[2018-02-26 01:04] VITALS: BP 124/73
[2018-02-26] MEDS: ACETAMINOPHEN 500 MG TABLET PO SCH ×3 (03:00→19:00)
[2018-02-26] MEDS: METOPROLOL TARTRATE 50 MG TABLET PO SCH ×2 (04:58→18:00)
[2018-02-26 07:52] VITALS: BP 155/88
[2018-02-26] MEDS: QUETIAPINE 25MG TABLET PO SCH ×2 (09:00→20:13)
[2018-02-26] MEDS: CLOPIDOGREL 75 MG TABLET PO SCH (09:00)
[2018-02-26] MEDS: LORazepam 0.5MG TABLET PO SCH (09:00)
[2018-02-26] MEDS: DIVALPROEX 125 MG CAP.SPRINK PO SCH (12:00)
[2018-02-26 13:18] VITALS: BP 112/72
[2018-02-26] MEDS: ZIPRASIDONE 20 MG INJ IM PRN (15:02)
[2018-02-26 19:05] VITALS: BP 125/84
[2018-02-26] MEDS: ENOXAPARIN 30 MG/0.3 ML SQ SCH (20:00)
[2018-02-26] MEDS: ATORVASTATIN 20 MG TABLET PO SCH (20:13)
[2018-02-27 02:59] VITALS: BP 126/79
[2018-02-27] MEDS: ACETAMINOPHEN 500 MG TABLET PO SCH ×3 (03:00→19:00)
[2018-02-27] MEDS: METOPROLOL TARTRATE 50 MG TABLET PO SCH ×2 (06:00→17:53)
[2018-02-27 07:18] VITALS: BP 139/68
[2018-02-27] MEDS: CLOPIDOGREL 75 MG TABLET PO SCH ×2 (09:00→11:17)
[2018-02-27] MEDS: QUETIAPINE 25MG TABLET PO SCH ×3 (09:00→20:13)
[2018-02-27] MEDS: LORazepam 0.5MG TABLET PO SCH ×2 (09:00→11:17)
[2018-02-27] MEDS: DIVALPROEX 125 MG CAP.SPRINK PO SCH (11:17)
[2018-02-27 12:04] VITALS: BP 139/77
[2018-02-27 18:55] VITALS: BP 166/62
[2018-02-27] MEDS: ATORVASTATIN 20 MG TABLET PO SCH (20:13)
[2018-02-27] MEDS: ENOXAPARIN 30 MG/0.3 ML SQ SCH (20:13)
[2018-02-28] MEDS: ACETAMINOPHEN 500 MG TABLET PO SCH ×3 (03:00→19:00)
[2018-02-28 05:21] VITALS: BP 90/52
[2018-02-28] MEDS: METOPROLOL TARTRATE 50 MG TABLET PO SCH ×2 (06:00→17:37)
[2018-02-28 08:05] VITALS: BP 99/60
[2018-02-28] MEDS: LORazepam 0.5MG TABLET PO SCH (09:00)
[2018-02-28] MEDS: CLOPIDOGREL 75 MG TABLET PO SCH (09:00)
[2018-02-28] MEDS: QUETIAPINE 25MG TABLET PO SCH ×2 (09:00→20:17)
[2018-02-28] MEDS: DIVALPROEX 125 MG CAP.SPRINK PO SCH (12:00)
[2018-02-28 15:47] VITALS: BP 123/77
[2018-02-28 20:13] VITALS: BP 124/78
[2018-02-28] MEDS: ATORVASTATIN 20 MG TABLET PO SCH (20:15)
[2018-02-28] MEDS: ENOXAPARIN 30 MG/0.3 ML SQ SCH (20:16)
[2018-03-01] MEDS: ACETAMINOPHEN 500 MG TABLET PO SCH ×3 (03:00→18:33)
[2018-03-01 03:53] VITALS: BP 122/70
[2018-03-01] MEDS: METOPROLOL TARTRATE 50 MG TABLET PO SCH ×2 (05:11→18:00)
[2018-03-01 07:11] VITALS: BP 109/65
[2018-03-01] MEDS: LORazepam 0.5MG TABLET PO SCH (09:00)
[2018-03-01] MEDS: CLOPIDOGREL 75 MG TABLET PO SCH (09:00)
[2018-03-01] MEDS: QUETIAPINE 25MG TABLET PO SCH ×2 (09:00→20:18)
[2018-03-01] MEDS: DIVALPROEX 125 MG CAP.SPRINK PO SCH (12:00)
[2018-03-01] MEDS: ZIPRASIDONE 20 MG INJ IM PRN (13:20)
[2018-03-01 14:13] VITALS: BP 145/90
[2018-03-01] MEDS: LORazepam 2 MG/ML, 1ML IM PRN (16:36)
[2018-03-01 19:05] VITALS: BP 124/79
[2018-03-01] MEDS: ENOXAPARIN 30 MG/0.3 ML SQ SCH (20:00)
[2018-03-01] MEDS: ATORVASTATIN 20 MG TABLET PO SCH (20:18)
[2018-03-02 00:20] VITALS: BP 165/82
[2018-03-02] MEDS: ACETAMINOPHEN 500 MG TABLET PO SCH ×3 (03:28→19:00)
[2018-03-02] MEDS: METOPROLOL TARTRATE 50 MG TABLET PO SCH ×2 (05:28→17:55)
[2018-03-02] MEDS: QUETIAPINE 25MG TABLET PO SCH ×2 (08:05→21:00)
[2018-03-02] MEDS: CLOPIDOGREL 75 MG TABLET PO SCH (08:06)
[2018-03-02] MEDS: LORazepam 0.5MG TABLET PO SCH (08:06)
[2018-03-02 08:16] VITALS: BP 152/91
[2018-03-02] MEDS: DIVALPROEX 125 MG CAP.SPRINK PO SCH (12:00)
[2018-03-02 13:07] VITALS: BP 143/86
[2018-03-02 19:19] VITALS: BP 102/66
[2018-03-02] MEDS: ENOXAPARIN 30 MG/0.3 ML SQ SCH (20:00)
[2018-03-02] MEDS: ATORVASTATIN 20 MG TABLET PO SCH (21:00)
[2018-03-03] MEDS: ACETAMINOPHEN 500 MG TABLET PO SCH ×3 (03:00→19:00)
[2018-03-03] MEDS: METOPROLOL TARTRATE 50 MG TABLET PO SCH ×2 (06:00→17:02)
[2018-03-03 08:00] VITALS: BP 114/77
[2018-03-03] MEDS: CLOPIDOGREL 75 MG TABLET PO SCH (08:49)
[2018-03-03] MEDS: QUETIAPINE 25MG TABLET PO SCH ×2 (08:49→19:17)
[2018-03-03] MEDS: LORazepam 0.5MG TABLET PO SCH (08:49)
[2018-03-03] MEDS: ZIPRASIDONE 20 MG INJ IM PRN ×2 (11:08→22:07)
[2018-03-03] MEDS: DIVALPROEX 125 MG CAP.SPRINK PO SCH (12:00)
[2018-03-03 13:56] VITALS: BP 133/81
[2018-03-03] MEDS: LORazepam 2 MG/ML, 1ML IM ONE ×2 (17:30→18:19)
[2018-03-03 18:24] VITALS: BP 152/81
[2018-03-03] MEDS: ENOXAPARIN 40 MG/0.4 ML SQ SCH (19:17)
[2018-03-03] MEDS: ATORVASTATIN 20 MG TABLET PO SCH (19:17)
[2018-03-04] MEDS: ACETAMINOPHEN 500 MG TABLET PO SCH ×4 (03:00→17:27)
[2018-03-04] MEDS: METOPROLOL TARTRATE 50 MG TABLET PO SCH ×2 (06:00→17:28)
[2018-03-04 06:05] VITALS: BP 137/63
[2018-03-04 06:30] VITALS: BP 122/72
[2018-03-04] MEDS: CLOPIDOGREL 75 MG TABLET PO SCH (08:18)
[2018-03-04] MEDS: LORazepam 0.5MG TABLET PO SCH (08:18)
[2018-03-04] MEDS: QUETIAPINE 25MG TABLET PO SCH ×2 (08:19→20:26)
[2018-03-04] MEDS: DIVALPROEX 125 MG CAP.SPRINK PO SCH ×2 (11:27→11:32)
[2018-03-04 15:35] VITALS: BP_SYST 148; BP_SYST 154; BP_DIAS 84; BP_DIAS 98
[2018-03-04 18:17] VITALS: BP 147/79
[2018-03-04] MEDS: ENOXAPARIN 40 MG/0.4 ML SQ SCH (20:00)
[2018-03-04] MEDS: ATORVASTATIN 20 MG TABLET PO SCH ×2 (20:26→21:00)
[2018-03-05 01:23] VITALS: BP 128/74
[2018-03-05] MEDS: ACETAMINOPHEN 500 MG TABLET PO SCH ×3 (03:00→19:00)
[2018-03-05] MEDS: METOPROLOL TARTRATE 50 MG TABLET PO SCH ×2 (05:48→18:00)
[2018-03-05 07:37] VITALS: BP 110/67
[2018-03-05] MEDS: QUETIAPINE 25MG TABLET PO SCH ×3 (09:00→20:26)
[2018-03-05] MEDS: LORazepam 0.5MG TABLET PO SCH ×2 (09:00→11:47)
[2018-03-05] MEDS: CLOPIDOGREL 75 MG TABLET PO SCH ×2 (09:00→11:47)
[2018-03-05] MEDS: DIVALPROEX 125 MG CAP.SPRINK PO SCH (11:46)
[2018-03-05 13:20] VITALS: BP 94/59
[2018-03-05] MEDS: ZIPRASIDONE 20 MG INJ IM PRN (17:26)
[2018-03-05 19:23] VITALS: BP 148/71
[2018-03-05] MEDS: ENOXAPARIN 40 MG/0.4 ML SQ SCH (20:00)
[2018-03-05] MEDS: ATORVASTATIN 20 MG TABLET PO SCH (20:27)
[2018-03-06 01:57] VITALS: BP 130/68
[2018-03-06] MEDS: ACETAMINOPHEN 500 MG TABLET PO SCH ×3 (03:00→19:16)
[2018-03-06] MEDS: METOPROLOL TARTRATE 50 MG TABLET PO SCH ×2 (05:38→19:16)
[2018-03-06 07:50] VITALS: BP 125/80
[2018-03-06] MEDS: CLOPIDOGREL 75 MG TABLET PO SCH (08:42)
[2018-03-06] MEDS: QUETIAPINE 25MG TABLET PO SCH ×2 (08:43→20:03)
[2018-03-06] MEDS: LORazepam 0.5MG TABLET PO SCH (08:43)
[2018-03-06] MEDS: DIVALPROEX 125 MG CAP.SPRINK PO SCH (12:26)
[2018-03-06 13:45] VITALS: BP 128/79
[2018-03-06 18:37] VITALS: BP 133/79
[2018-03-06] MEDS: ENOXAPARIN 40 MG/0.4 ML SQ SCH (20:00)
[2018-03-06] MEDS: ATORVASTATIN 20 MG TABLET PO SCH (20:03)
[2018-03-07 01:04] VITALS: BP 115/65
[2018-03-07] MEDS: ACETAMINOPHEN 500 MG TABLET PO SCH ×3 (03:00→18:37)
[2018-03-07 08:07] VITALS: BP 144/89
[2018-03-07] MEDS: METOPROLOL TARTRATE 50 MG TABLET PO SCH ×2 (08:31→18:00)
[2018-03-07] MEDS: CLOPIDOGREL 75 MG TABLET PO SCH (08:31)
[2018-03-07] MEDS: QUETIAPINE 25MG TABLET PO SCH ×2 (08:31→21:00)
[2018-03-07] MEDS: LORazepam 0.5MG TABLET PO SCH (08:32)
[2018-03-07] MEDS ORDERED: LORazepam 1MG TABLET ONE (09:49)
[2018-03-07] MEDS ORDERED: LORazepam 1MG TABLET PO ONE (09:50)
[2018-03-07] MEDS: DIVALPROEX 125 MG CAP.SPRINK PO SCH (12:00)
[2018-03-07] MEDS: ENOXAPARIN 40 MG/0.4 ML SQ SCH (20:00)
[2018-03-07] MEDS: ATORVASTATIN 40 MG TABLET PO SCH (21:00)
[2018-03-07 21:45] VITALS: BP 106/81
[2018-03-08] MEDS: ACETAMINOPHEN 500 MG TABLET PO SCH ×4 (03:00→19:00)
[2018-03-08 03:30] VITALS: BP 111/79
[2018-03-08 05:16] LABS: CREATININE 0.97 mg/dL (0.55-1.02)
[2018-03-08 07:55] VITALS: BP 125/81
[2018-03-08] MEDS: METOPROLOL TARTRATE 50 MG TABLET PO SCH ×3 (08:00→18:24)
[2018-03-08] MEDS: ZIPRASIDONE 20 MG INJ IM PRN ×2 (08:17→22:34)
[2018-03-08] MEDS: LORazepam 0.5MG TABLET PO SCH (08:19)
[2018-03-08] MEDS: QUETIAPINE 25MG TABLET PO SCH ×2 (08:19→20:52)
[2018-03-08] MEDS: CLOPIDOGREL 75 MG TABLET PO SCH (08:25)
[2018-03-08] MEDS: DIVALPROEX 125 MG CAP.SPRINK PO SCH (12:58)
[2018-03-08 13:23] LABS: CULTURE INDICATED? YES; MICROSCOPIC AUTO
[2018-03-08 13:25] VITALS: BP 113/76
[2018-03-08] MEDS: LORazepam 2 MG/ML, 1ML IM PRN (18:27)
[2018-03-08] MEDS: ENOXAPARIN 40 MG/0.4 ML SQ SCH (20:00)
[2018-03-08] MEDS: ATORVASTATIN 40 MG TABLET PO SCH (20:52)
[2018-03-08 21:09] VITALS: BP 115/76
[2018-03-09 02:25] VITALS: BP 119/79
[2018-03-09] MEDS: ACETAMINOPHEN 500 MG TABLET PO SCH ×3 (03:00→19:00)
[2018-03-09 06:17] VITALS: BP 146/91
[2018-03-09] MEDS: METOPROLOL TARTRATE 50 MG TABLET PO SCH ×2 (06:32→18:00)
[2018-03-09] MEDS: LORazepam 0.5MG TABLET PO SCH (09:06)
[2018-03-09] MEDS: QUETIAPINE 25MG TABLET PO SCH ×2 (09:06→21:00)
[2018-03-09] MEDS: CLOPIDOGREL 75 MG TABLET PO SCH (09:06)
[2018-03-09] MEDS: DIVALPROEX 125 MG CAP.SPRINK PO SCH (11:17)
[2018-03-09] MEDS: ZIPRASIDONE 20 MG INJ IM PRN ×2 (13:19→20:18)
[2018-03-09] MEDS: ENOXAPARIN 40 MG/0.4 ML SQ SCH (20:00)
[2018-03-09 20:59] VITALS: BP 121/76
[2018-03-09] MEDS: ATORVASTATIN 40 MG TABLET PO SCH (21:00)
[2018-03-10] VITALS (12 sets, daily range): BP systolic 92–158; BP diastolic 58–78
[2018-03-10] MEDS: ACETAMINOPHEN 500 MG TABLET PO SCH ×3 (03:00→19:00)
[2018-03-10] MEDS: METOPROLOL TARTRATE 50 MG TABLET PO SCH ×2 (06:35→18:00)
[2018-03-10] MEDS: LORazepam 0.5MG TABLET PO SCH (08:42)
[2018-03-10] MEDS: QUETIAPINE 25MG TABLET PO SCH ×2 (08:42→20:07)
[2018-03-10] MEDS: CLOPIDOGREL 75 MG TABLET PO SCH (08:42)
[2018-03-10] MEDS: DIVALPROEX 125 MG CAP.SPRINK PO SCH (12:08)
[2018-03-10] MEDS: ZIPRASIDONE 20 MG INJ IM PRN (16:14)
[2018-03-10] MEDS: ENOXAPARIN 40 MG/0.4 ML SQ SCH (20:11)
[2018-03-10] MEDS: ATORVASTATIN 40 MG TABLET PO SCH (20:11)
[2018-03-11] MEDS: ACETAMINOPHEN 500 MG TABLET PO SCH ×3 (03:00→19:00)
[2018-03-11] MEDS: METOPROLOL TARTRATE 50 MG TABLET PO SCH ×2 (06:00→18:00)
[2018-03-11] MEDS: ZIPRASIDONE 20 MG INJ IM PRN ×2 (07:34→19:34)
[2018-03-11 07:50] VITALS: BP 129/71
[2018-03-11] MEDS: QUETIAPINE 25MG TABLET PO SCH ×2 (09:33→21:51)
[2018-03-11] MEDS: LORazepam 0.5MG TABLET PO SCH (09:33)
[2018-03-11] MEDS: CLOPIDOGREL 75 MG TABLET PO SCH (09:33)
[2018-03-11] MEDS ORDERED: LORazepam 1MG TABLET PO ONE (10:05)
[2018-03-11] MEDS ORDERED: LORazepam 1MG TABLET ONE (10:07)
[2018-03-11 11:25] LABS: TROPONIN I < 0.015 ng/mL (0.000-0.045)
[2018-03-11] MEDS: DIVALPROEX 125 MG CAP.SPRINK PO SCH ×2 (12:00→12:38)
[2018-03-11 14:23] VITALS: BP 135/76
[2018-03-11 18:55] VITALS: BP 125/74
[2018-03-11] MEDS: ATORVASTATIN 40 MG TABLET PO SCH (21:51)
[2018-03-11] MEDS: ENOXAPARIN 40 MG/0.4 ML SQ SCH (21:52)
[2018-03-12] MEDS: ACETAMINOPHEN 500 MG TABLET PO SCH ×3 (03:00→21:15)
[2018-03-12 05:31] VITALS: BP 130/72
[2018-03-12] MEDS: METOPROLOL TARTRATE 50 MG TABLET PO SCH ×2 (06:00→19:15)
[2018-03-12 07:05] VITALS: BP 137/80
[2018-03-12] MEDS: LORazepam 0.5MG TABLET PO SCH (09:18)
[2018-03-12] MEDS: QUETIAPINE 25MG TABLET PO SCH ×2 (09:18→21:16)
[2018-03-12] MEDS: CLOPIDOGREL 75 MG TABLET PO SCH (09:18)
[2018-03-12] MEDS: DIVALPROEX 125 MG CAP.SPRINK PO SCH (11:30)
[2018-03-12] MEDS: CEFDINIR 300 MG CAPSULE PO SCH ×2 (11:30→21:16)
[2018-03-12 13:20] VITALS: BP 132/76
[2018-03-12] MEDS: ZIPRASIDONE 20 MG INJ IM PRN (14:46)
[2018-03-12 18:54] VITALS: BP 128/70
[2018-03-12] MEDS: ENOXAPARIN 40 MG/0.4 ML SQ SCH (21:15)
[2018-03-12] MEDS: ATORVASTATIN 40 MG TABLET PO SCH (21:16)
[2018-03-13 01:25] VITALS: BP 105/63
[2018-03-13] MEDS: ACETAMINOPHEN 500 MG TABLET PO SCH ×3 (03:30→21:41)
[2018-03-13 04:38] LABS: BASOPHILS # (AUTO) 0.03 x10^3/uL (0-0.1); BASOPHILS % (AUTO) 1 % (0-1); EOSINOPHILS # (AUTO) 0.18 x10^3/uL (0-0.4); EOSINOPHILS % (AUTO) 5 % (1-7); LYMPHOCYTES # (AUTO) 1.83 x10^3/uL (1-3.4); LYMPHOCYTES % (AUTO) 53 % (22-44); MD NO; MEAN CORPUSCULAR HEMOGLOBIN 32.4 pg (27.0-34.8); MEAN CORPUSCULAR HGB CONC 33.9 g/dL (32.4-35.8); MEAN CORPUSCULAR VOLUME 95.6 fL (80-100); MEAN PLATELET VOLUME 8.1 fL (7.4-10.4); MONOCYTES # (AUTO) 0.42 x10^3/uL (0.2-0.8); MONOCYTES % (AUTO) 12 % (2-9); NEUTROPHILS # (AUTO) 0.98 x10^3/uL (1.8-6.8); NEUTROPHILS % (AUTO) 29 % (42-75); PLATELET COUNT 207 x10^3/uL (130-400); RED BLOOD COUNT 3.55 x10^6/uL (3.82-5.3); RED CELL DISTRIBUTION WIDTH 13.8 % (9.6-15.2)
[2018-03-13 04:50] LABS: ANION GAP 8 mmol/L (5-15); CALCIUM 8.5 mg/dL (8.5-10.1); CHLORIDE 111 mmol/L (98-107); CREATININE 1.27 mg/dL (0.55-1.02)
[2018-03-13] MEDS: METOPROLOL TARTRATE 50 MG TABLET PO SCH ×2 (05:09→17:12)
[2018-03-13 07:09] VITALS: BP 112/68
[2018-03-13] MEDS: CLOPIDOGREL 75 MG TABLET PO SCH (08:53)
[2018-03-13] MEDS: QUETIAPINE 25MG TABLET PO SCH ×2 (08:53→21:41)
[2018-03-13] MEDS: CEFDINIR 300 MG CAPSULE PO SCH ×2 (08:53→21:41)
[2018-03-13] MEDS: LORazepam 0.5MG TABLET PO SCH (08:53)
[2018-03-13] MEDS: ZIPRASIDONE 20 MG INJ IM PRN (11:56)
[2018-03-13] MEDS: DIVALPROEX 125 MG CAP.SPRINK PO SCH (11:56)
[2018-03-13 18:43] VITALS: BP 127/86
[2018-03-13] MEDS: ATORVASTATIN 40 MG TABLET PO SCH (21:41)
[2018-03-13] MEDS: ENOXAPARIN 30 MG/0.3 ML SQ SCH (21:41)
[2018-03-14 00:14] VITALS: BP 129/64
[2018-03-14] MEDS: ZIPRASIDONE 20 MG INJ IM PRN ×2 (01:15→13:20)
[2018-03-14] MEDS: ACETAMINOPHEN 500 MG TABLET PO SCH ×3 (03:35→22:24)
[2018-03-14] MEDS: METOPROLOL TARTRATE 50 MG TABLET PO SCH ×3 (05:28→17:00)
[2018-03-14 06:54] VITALS: BP 151/88
[2018-03-14] MEDS: LORazepam 2 MG/ML, 1ML IM PRN ×3 (08:03→23:46)
[2018-03-14] MEDS: CLOPIDOGREL 75 MG TABLET PO SCH ×2 (08:26→09:00)
[2018-03-14] MEDS: LORazepam 0.5MG TABLET PO SCH ×2 (08:26→12:39)
[2018-03-14] MEDS: CEFDINIR 300 MG CAPSULE PO SCH ×3 (08:26→22:25)
[2018-03-14] MEDS: QUETIAPINE 25MG TABLET PO SCH ×3 (08:26→22:25)
[2018-03-14 08:45] VITALS: BP 170/95
[2018-03-14] MEDS: DIVALPROEX 125 MG CAP.SPRINK PO SCH (12:39)
[2018-03-14 18:34] VITALS: BP 138/81
[2018-03-14] MEDS: ATORVASTATIN 40 MG TABLET PO SCH (22:23)
[2018-03-14] MEDS: ENOXAPARIN 30 MG/0.3 ML SQ SCH (22:26)
[2018-03-15 02:30] VITALS: BP 186/86
[2018-03-15] MEDS: ZIPRASIDONE 20 MG INJ IM PRN (04:05)
[2018-03-15 05:34] VITALS: BP 107/67
[2018-03-15] MEDS: ACETAMINOPHEN 500 MG TABLET PO SCH ×3 (05:36→22:05)
[2018-03-15] MEDS: METOPROLOL TARTRATE 50 MG TABLET PO SCH ×2 (05:36→17:52)
[2018-03-15 11:07] VITALS: BP 124/76
[2018-03-15] MEDS: CLOPIDOGREL 75 MG TABLET PO SCH (11:09)
[2018-03-15] MEDS: CEFDINIR 300 MG CAPSULE PO SCH ×2 (11:09→22:02)
[2018-03-15] MEDS: LORazepam 0.5MG TABLET PO SCH (11:09)
[2018-03-15] MEDS: QUETIAPINE 25MG TABLET PO SCH ×2 (11:10→22:03)
[2018-03-15] MEDS: DIVALPROEX 125 MG CAP.SPRINK PO SCH (13:18)
[2018-03-15 14:06] VITALS: BP 133/87
[2018-03-15 20:35] VITALS: BP 149/84
[2018-03-15] MEDS: ATORVASTATIN 40 MG TABLET PO SCH (22:02)
[2018-03-15] MEDS: ENOXAPARIN 30 MG/0.3 ML SQ SCH (22:03)
[2018-03-16 03:59] VITALS: BP 102/58
[2018-03-16] MEDS: METOPROLOL TARTRATE 50 MG TABLET PO SCH ×2 (05:42→18:00)
[2018-03-16] MEDS: ACETAMINOPHEN 500 MG TABLET PO SCH ×4 (06:00→20:02)
[2018-03-16 08:30] VITALS: BP 110/69
[2018-03-16] MEDS: LORazepam 0.5MG TABLET PO SCH (09:32)
[2018-03-16] MEDS: CLOPIDOGREL 75 MG TABLET PO SCH (09:32)
[2018-03-16] MEDS: CEFDINIR 300 MG CAPSULE PO SCH ×2 (09:33→19:25)
[2018-03-16] MEDS: QUETIAPINE 25MG TABLET PO SCH ×2 (09:33→19:25)
[2018-03-16] MEDS: ZIPRASIDONE 20 MG INJ IM PRN ×2 (09:59→19:52)
[2018-03-16] MEDS: DIVALPROEX 125 MG CAP.SPRINK PO SCH (12:00)
[2018-03-16] MEDS: LORazepam 2 MG/ML, 1ML IM PRN (15:29)
[2018-03-16 17:11] VITALS: BP 136/79
[2018-03-16 18:26] VITALS: BP 145/80
[2018-03-16] MEDS: TRAZODONE 50MG TABLET PO PRN (19:24)
[2018-03-16] MEDS: ATORVASTATIN 40 MG TABLET PO SCH ×2 (19:25→20:01)
[2018-03-16] MEDS: ENOXAPARIN 30 MG/0.3 ML SQ SCH ×2 (19:26→20:00)
[2018-03-17] MEDS: ACETAMINOPHEN 500 MG TABLET PO SCH ×3 (06:00→20:25)
[2018-03-17] MEDS: METOPROLOL TARTRATE 50 MG TABLET PO SCH ×2 (06:00→17:52)
[2018-03-17 06:31] VITALS: BP 125/77
[2018-03-17] MEDS: CEFDINIR 300 MG CAPSULE PO SCH ×2 (09:00→20:24)
[2018-03-17] MEDS: QUETIAPINE 25MG TABLET PO SCH ×2 (09:00→20:25)
[2018-03-17] MEDS: CLOPIDOGREL 75 MG TABLET PO SCH (09:00)
[2018-03-17] MEDS: LORazepam 0.5MG TABLET PO SCH (09:00)
[2018-03-17] MEDS: DIVALPROEX 125 MG CAP.SPRINK PO SCH (12:00)
[2018-03-17 13:17] VITALS: BP 124/81
[2018-03-17 15:00] VITALS: BP 126/72
[2018-03-17] MEDS: ZIPRASIDONE 20 MG INJ IM PRN (15:18)
[2018-03-17 16:15] VITALS: BP 114/78
[2018-03-17 16:45] VITALS: BP 114/76
[2018-03-17] MEDS: LORazepam 2 MG/ML, 1ML IM PRN (18:30)
[2018-03-17 19:04] VITALS: BP 129/77
[2018-03-17] MEDS: TRAZODONE 50MG TABLET PO PRN (20:24)
[2018-03-17] MEDS: ATORVASTATIN 40 MG TABLET PO SCH (20:25)
[2018-03-17] MEDS: ENOXAPARIN 30 MG/0.3 ML SQ SCH (20:26)
[2018-03-18 00:59] VITALS: BP 113/66
[2018-03-18] MEDS: METOPROLOL TARTRATE 50 MG TABLET PO SCH ×2 (05:37→18:00)
[2018-03-18] MEDS: ACETAMINOPHEN 500 MG TABLET PO SCH ×3 (05:45→22:00)
[2018-03-18] MEDS: CLOPIDOGREL 75 MG TABLET PO SCH (09:08)
[2018-03-18] MEDS: CEFDINIR 300 MG CAPSULE PO SCH ×2 (09:08→20:35)
[2018-03-18] MEDS: LORazepam 0.5MG TABLET PO SCH (09:08)
[2018-03-18] MEDS: QUETIAPINE 25MG TABLET PO SCH ×2 (09:09→20:35)
[2018-03-18 09:13] VITALS: BP 147/72
[2018-03-18] MEDS: QUETIAPINE 25MG TABLET PO PRN (13:07)
[2018-03-18 14:51] VITALS: BP 127/80
[2018-03-18 18:20] VITALS: BP 125/64
[2018-03-18] MEDS: ATORVASTATIN 40 MG TABLET PO SCH (20:35)
[2018-03-18] MEDS: ENOXAPARIN 30 MG/0.3 ML SQ SCH (20:35)
[2018-03-19 03:31] VITALS: BP_SYST 109; BP_SYST 118; BP_DIAS 57; BP_DIAS 64
[2018-03-19] MEDS: METOPROLOL TARTRATE 50 MG TABLET PO SCH ×2 (06:00→18:39)
[2018-03-19] MEDS: ACETAMINOPHEN 500 MG TABLET PO SCH ×3 (06:00→22:00)
[2018-03-19 07:13] VITALS: BP 128/75
[2018-03-19] MEDS: CEFDINIR 300 MG CAPSULE PO SCH ×2 (11:36→20:06)
[2018-03-19] MEDS: LORazepam 0.5MG TABLET PO SCH (11:36)
[2018-03-19] MEDS: CLOPIDOGREL 75 MG TABLET PO SCH (11:36)
[2018-03-19] MEDS: QUETIAPINE 25MG TABLET PO SCH ×2 (11:37→20:06)
[2018-03-19 14:45] VITALS: BP 119/64
[2018-03-19 18:27] VITALS: BP 129/80
[2018-03-19] MEDS: ATORVASTATIN 40 MG TABLET PO SCH (20:06)
[2018-03-19] MEDS: ENOXAPARIN 30 MG/0.3 ML SQ SCH (20:07)
[2018-03-20 01:58] VITALS: BP 107/59
[2018-03-20] MEDS: METOPROLOL TARTRATE 50 MG TABLET PO SCH ×2 (05:29→18:00)
[2018-03-20] MEDS: ACETAMINOPHEN 500 MG TABLET PO SCH ×3 (06:00→22:29)
[2018-03-20 07:44] VITALS: BP 119/60
[2018-03-20] MEDS: CLOPIDOGREL 75 MG TABLET PO SCH (09:55)
[2018-03-20] MEDS: QUETIAPINE 25MG TABLET PO SCH ×2 (09:55→22:31)
[2018-03-20] MEDS: LORazepam 0.5MG TABLET PO SCH (09:55)
[2018-03-20] MEDS: CEFDINIR 300 MG CAPSULE PO SCH (09:55)
[2018-03-20 13:22] VITALS: BP 125/65
[2018-03-20] MEDS: QUETIAPINE 25MG TABLET PO PRN (16:16)
[2018-03-20 19:48] VITALS: BP 97/59
[2018-03-20] MEDS: ATORVASTATIN 40 MG TABLET PO SCH (22:29)
[2018-03-20] MEDS: TRAZODONE 50MG TABLET PO PRN (22:30)
[2018-03-20] MEDS: ENOXAPARIN 30 MG/0.3 ML SQ SCH (22:31)
[2018-03-20] MEDS: LORazepam 2 MG/ML, 1ML IM PRN (23:26)
[2018-03-21] MEDS: METOPROLOL TARTRATE 50 MG TABLET PO SCH ×2 (06:00→17:35)
[2018-03-21] MEDS: ACETAMINOPHEN 500 MG TABLET PO SCH ×3 (06:01→21:24)
[2018-03-21] MEDS: LORazepam 2 MG/ML, 1ML IM PRN (07:45)
[2018-03-21] MEDS: CLOPIDOGREL 75 MG TABLET PO SCH (08:46)
[2018-03-21] MEDS: QUETIAPINE 25MG TABLET PO SCH ×2 (08:46→21:24)
[2018-03-21] MEDS: QUETIAPINE 25MG TABLET PO PRN (12:20)
[2018-03-21 13:00] VITALS: BP 124/79
[2018-03-21] MEDS: LORazepam 0.5MG TABLET PO SCH (16:46)
[2018-03-21 18:18] VITALS: BP 129/74
[2018-03-21] MEDS: ENOXAPARIN 30 MG/0.3 ML SQ SCH (21:00)
[2018-03-21] MEDS: TRAZODONE 50MG TABLET PO PRN (21:24)
[2018-03-21] MEDS: ATORVASTATIN 40 MG TABLET PO SCH (21:24)
[2018-03-22 01:35] VITALS: BP 148/79
[2018-03-22] MEDS: METOPROLOL TARTRATE 50 MG TABLET PO SCH ×2 (05:23→17:29)
[2018-03-22] MEDS: ACETAMINOPHEN 500 MG TABLET PO SCH ×2 (06:05→17:29)
[2018-03-22 08:05] VITALS: BP 121/75
[2018-03-22] MEDS: CLOPIDOGREL 75 MG TABLET PO SCH (09:23)
[2018-03-22] MEDS: QUETIAPINE 25MG TABLET PO SCH ×2 (09:23→21:44)
[2018-03-22] MEDS: LORazepam 0.5MG TABLET PO SCH (09:23)
[2018-03-22 13:55] VITALS: BP 132/75
[2018-03-22 19:29] VITALS: BP 130/69
[2018-03-22] MEDS: ENOXAPARIN 30 MG/0.3 ML SQ SCH (21:00)
[2018-03-22] MEDS: ATORVASTATIN 40 MG TABLET PO SCH (21:43)
[2018-03-22] MEDS: TRAZODONE 50MG TABLET PO PRN (21:43)
[2018-03-23 01:25] VITALS: BP 124/79
[2018-03-23] MEDS: ACETAMINOPHEN 500 MG TABLET PO SCH ×3 (01:30→17:30)
[2018-03-23 08:00] VITALS: BP 145/74
[2018-03-23] MEDS: METOPROLOL TARTRATE 50 MG TABLET PO SCH ×2 (09:45→18:00)
[2018-03-23] MEDS: CLOPIDOGREL 75 MG TABLET PO SCH (09:46)
[2018-03-23] MEDS: LORazepam 0.5MG TABLET PO SCH (09:47)
[2018-03-23] MEDS: QUETIAPINE 25MG TABLET PO SCH ×2 (09:47→21:04)
[2018-03-23 14:00] VITALS: BP 139/80
[2018-03-23 19:10] VITALS: BP 154/71
[2018-03-23] MEDS: ATORVASTATIN 40 MG TABLET PO SCH (21:04)
[2018-03-23] MEDS: TRAZODONE 50MG TABLET PO PRN (21:04)
[2018-03-23] MEDS: ENOXAPARIN 30 MG/0.3 ML SQ SCH (21:04)
[2018-03-24] MEDS: ACETAMINOPHEN 500 MG TABLET PO SCH ×3 (01:30→16:02)
[2018-03-24 02:10] VITALS: BP 147/66
[2018-03-24] MEDS: METOPROLOL TARTRATE 50 MG TABLET PO SCH ×2 (06:00→17:42)
[2018-03-24] MEDS ORDERED: METO50TA82 PO (07:09)
[2018-03-24] MEDS ORDERED: CLOP75TA PO (07:09)
[2018-03-24] MEDS ORDERED: ATOR40TA78 PO (07:09)
[2018-03-24] MEDS ORDERED: QUET25TA PO (07:09)
[2018-03-24 07:23] VITALS: BP 147/74
[2018-03-24] MEDS: LORazepam 0.5MG TABLET PO SCH (09:36)
[2018-03-24] MEDS: CLOPIDOGREL 75 MG TABLET PO SCH (09:36)
[2018-03-24] MEDS: QUETIAPINE 25MG TABLET PO SCH ×2 (09:36→21:00)
[2018-03-24 12:55] VITALS: BP 107/56
[2018-03-24 18:55] VITALS: BP 130/67
[2018-03-24] MEDS: ATORVASTATIN 40 MG TABLET PO SCH (21:00)
[2018-03-24] MEDS: ENOXAPARIN 30 MG/0.3 ML SQ SCH (21:00)
[2018-03-25] MEDS: QUETIAPINE 25MG TABLET PO PRN (00:58)
[2018-03-25 01:21] VITALS: BP 123/68
[2018-03-25] MEDS: ACETAMINOPHEN 500 MG TABLET PO SCH ×4 (01:30→23:22)
[2018-03-25] MEDS: METOPROLOL TARTRATE 50 MG TABLET PO SCH ×2 (05:28→17:46)
[2018-03-25] MEDS: LORazepam 0.5MG TABLET PO SCH (09:06)
[2018-03-25] MEDS: QUETIAPINE 25MG TABLET PO SCH ×3 (09:06→21:00)
[2018-03-25] MEDS: CLOPIDOGREL 75 MG TABLET PO SCH (09:06)
[2018-03-25 10:17] VITALS: BP 99/57
[2018-03-25 10:51] VITALS: BP 129/70
[2018-03-25 15:02] VITALS: BP 138/80
[2018-03-25] MEDS: ATORVASTATIN 40 MG TABLET PO SCH ×2 (19:13→19:39)
[2018-03-25] MEDS: ENOXAPARIN 30 MG/0.3 ML SQ SCH (19:39)
[2018-03-25 20:00] VITALS: BP 136/88
[2018-03-25] MEDS ORDERED: LORazepam 2 MG/ML, 1ML IM PRN (21:30)
[2018-03-26 00:21] VITALS: BP 144/94
[2018-03-26] MEDS: QUETIAPINE 25MG TABLET PO PRN ×3 (01:12→16:35)
[2018-03-26 03:51] LABS: CULTURE INDICATED? YES; MICROSCOPIC INDICATED
[2018-03-26] MEDS: METOPROLOL TARTRATE 50 MG TABLET PO SCH (04:10)
[2018-03-26 08:00] VITALS: BP 185/90
[2018-03-26] MEDS ORDERED: CEFDINIR 300 MG CAPSULE PO SCH (09:00)
[2018-03-26] MEDS: LORazepam 0.5MG TABLET PO SCH (09:07)
[2018-03-26] MEDS: CLOPIDOGREL 75 MG TABLET PO SCH (09:07)
[2018-03-26] MEDS: QUETIAPINE 25MG TABLET PO SCH (09:07)
[2018-03-26] MEDS: ACETAMINOPHEN 500 MG TABLET PO SCH (09:07)
[2018-03-26] MEDS ORDERED: CEFD300C37 PO (09:38)
[2018-03-26] MEDS ORDERED: PNEUMOCOCCAL 23 VACCINE IM-VACC ONE (10:30)
[2018-03-26] MEDS ORDERED: LORazepam 1MG TABLET PO ONE (12:00)
[2018-03-26 12:32] VITALS: BP 144/87
== END 2018-03-26 16:45 | DRG 77 ==
LOC: ED 18:38 → EDIP 19:25 → 4NOR 20:54 → 4WST 01-21 17:30 → 3NW 01-31 11:47 → 3NE 02-03 18:23
PROVIDERS: ADMIT Hospitalist; ATTEND Family Medicine
DX: I67.4 Hypertensive encephalopathy (principal); N17.0 Acute kidney failure with tubular necrosis; I63.9 Cerebral infarction, unspecified; F02.81 Dementia in other diseases classified elsewhere, unspecified severity, with behavioral disturbance; E87.1 Hypo-osmolality and hyponatremia; I16.9 Hypertensive crisis, unspecified; R45.851 Suicidal ideations; G31.09 Other frontotemporal neurocognitive disorder; B96.20 Unspecified Escherichia coli [E. coli] as the cause of diseases classified elsewhere; N30.90 Cystitis, unspecified without hematuria; W13.4XXA Fall from, out of or through window, initial encounter; D64.9 Anemia, unspecified; Z87.440 Personal history of urinary (tract) infections; E78.5 Hyperlipidemia, unspecified; R41.89 Other symptoms and signs involving cognitive functions and awareness; B95.5 Unspecified streptococcus as the cause of diseases classified elsewhere; Z66 Do not resuscitate; F09 Unspecified mental disorder due to known physiological condition; I10 Essential (primary) hypertension; I25.10 Atherosclerotic heart disease of native coronary artery without angina pectoris; M75.31 Calcific tendinitis of right shoulder; M77.9 Enthesopathy, unspecified; Z60.2 Problems related to living alone; R62.7 Adult failure to thrive; I25.2 Old myocardial infarction; Z79.899 Other long term (current) drug therapy; Z59.0 Homelessness; Y93.39 Activity, other involving climbing, rappelling and jumping off; Z86.11 Personal history of tuberculosis; Z86.73 Personal history of transient ischemic attack (TIA), and cerebral infarction without residual deficits; Z78.1 Physical restraint status
CPT/HCPCS: 36415; 70450; 70544; 70547; 70553; 71045; 71046; 80048; 80053; 80061; 80307; 80329; 81001; 82565; 82607; 82746; 83735; 84100; 84439; 84443; 84484; 85025; 86480; 87040; 87077; 87086; 87186; 90732; 93005; 93306; 93880; 95819; 96372; A9585; J0696; J1650; J2405; J3486; 92523-GN; G0480; J0360; J2060; J7030